=== PATIENT | female | born 1975 | race Caucasian/White ===

== ENCOUNTER 2017-01-16 11:29 | Emergency (ER) | payer MEDICAID ==
[~2017-01-16] VITALS: Ht 154.9 cm; Wt 72.7 kg
[2017-01-16] MEDS ORDERED: IBUPROFEN 800 MG TABLET PO ONE (12:45)
[2017-01-16 14:55] VITALS: BP 100/79
== END 2017-01-16 14:57 | disposition home or self-care (01) ==
LOC: EMS 11:32
DX: S83.91XA Sprain of unspecified site of right knee, initial encounter (principal); W01.0XXA Fall on same level from slipping, tripping and stumbling without subsequent striking against object, initial encounter; Y93.89 Activity, other specified; Y92.810 Car as the place of occurrence of the external cause; Y99.8 Other external cause status
CPT/HCPCS: 99284

== ENCOUNTER 2020-03-03 01:42 | Emergency (ER) | payer SELFPAY ==
[~2020-03-03] VITALS: Ht 167.6 cm; Wt 68.2 kg
[2020-03-03] MEDS: HYDROCODONE/ACETAMINOPHEN 5-325 MG TABLET PO ONE ×2 (04:57→05:28)
[2020-03-03] MEDS ORDERED: PERTUSS(ACELL),DIPH,TET VAC/PF 0.5 ML VIAL IM ONE (05:30)
[2020-03-03] MEDS ORDERED: SODIUM CHLORIDE 0.9% 250 ML IRRIG SOLUTION BOTTLE IRRIG ONE (05:30)
[2020-03-03 06:08] VITALS: BP 121/73
== END 2020-03-03 06:03 | disposition home or self-care (01) ==
LOC: EMS 01:42
DX: S01.81XA Laceration without foreign body of other part of head, initial encounter (principal); M54.2 Cervicalgia; Y04.2XXA Assault by strike against or bumped into by another person, initial encounter; Y93.89 Activity, other specified; Y92.89 Other specified places as the place of occurrence of the external cause; Y99.8 Other external cause status
CPT/HCPCS: 70450; 72125; 90471; 90715